=== PATIENT | male | born 1945 | race Caucasian/White ===

== ENCOUNTER 2019-03-19 16:35 | Emergency (ER) | payer MEDICARE ==
[~2019-03-19] VITALS: Ht 175.3 cm; Wt 97.5 kg
[~2019-03-19 16:35] MED LIST: CEPH-264 PO; HTN MED PO
--- NOTE | 2019-03-19 16:42 | PHYS DOC ---
Past History Past Medical History: Asthma, High Cholesterol, Hypertension, Other Past Surgical History: Other Smoking: Non-smoker Alcohol Use: Occasionally Drug Use: None Adult General Chief Complaint Chief Complaint: KNEE INJURY HPI HPI Patient is a 74-year-old male presents complaining of right knee pain. Patient slipped going down a curb shortly prior to arrival. Landed directly on his knee. Increased pain with movement. Pain is moderate to severe. No previous history of right knee injury. He was brought in by EMS. No numbness or tingling. No hip pain.[] Review of Systems Review of Systems Constitutional: Denies fever or chills [] Eyes: Denies change in visual acuity, redness, or eye pain [] HENT: Denies nasal congestion or sore throat [] Respiratory: Denies cough or shortness of breath [] Cardiovascular: No chest pain or palpitations[] GI: Denies abdominal pain, nausea, vomiting, bloody stools or diarrhea [] : Denies dysuria or hematuria [] Musculoskeletal: Denies back pain, see history of present illness[] Integument: Denies rash or skin lesions [] Neurologic: Denies headache, focal weakness or sensory changes [] Endocrine: Denies polyuria or polydipsia [] All other systems were reviewed and found to be within normal limits, except as documented in this note. Allergies Allergies Allergies Coded Allergies Type Severity Reaction Last Updated Verified Penicillins Allergy Unknown 01/29/15 No Physical Exam Physical Exam Constitutional: Well developed, well nourished, mild to moderate discomfort, non-toxic appearance. [] HENT: Normocephalic, atraumatic, bilateral external ears normal, oropharynx moist, no oral exudates, nose normal. [] Eyes: PERRLA, EOMI, conjunctiva normal, no discharge. [] Neck: Normal range of motion, no tenderness, supple, no stridor. [] Cardiovascular:Heart rate regular rhythm, no murmur [] Lungs & Thorax: Bilateral breath sounds clear to auscultation [] Abdomen: Bowel sounds normal, soft, no tenderness, no masses, no pulsatile masses. Pelvis is stable in 3 planes[] Skin: Warm, dry, no erythema, no rash. [] Back: No tenderness, no CVA tenderness. [] Extremities: Right knee has diffuse tenderness to palpation. No bruising. Abrasion over the patella. Decreased active range of motion secondary to pain. Varus and valgus laxity was not grossly assessed due to significant pain on performing these motions, likewise with Daniel and drawer testing. A joint a edwin and a joined below were evaluated and were normal. The other 3 extremities show: No tenderness, no cyanosis, no clubbing, ROM intact, no edema. [] Neurologic: Alert and oriented X 3, normal motor function, normal sensory function, no focal deficits noted. [] Psychologic: Affect normal, judgement normal, mood normal. [] EKG EKG [] Radiology/Procedures Radiology/Procedures Right knee x-ray series shows a distal femur fracture.[] Course & Med Decision Making Course & Med Decision Making Pertinent Labs and Imaging studies reviewed. (See chart for details) ED course: Patient arrived, was placed in bed, and tolerated exam well. After the initial radiograph of the knee was obtained that showed an obvious fracture, IV access was established, pain medicine was given and then the additional images were obtained. Consultation was made with orthopedic surgery at , Dr Puga, who agrees that the patient needs surgery. Consultation was made with the hospitalist service, Dr. Zamarripa graciously accepted at [facility]. Findings were discussed with patient and family who voiced understanding. Patient was transferred in improved condition with all questions answered. Medical decision making: Patient with a distal femur fracture. We do not have orthopedic surgery available at [facility], so transfer arrangements are being made. There is no evidence of an open fracture. There is no evidence of neurologic or vascular compromise.[] Dragon Disclaimer Dragon Disclaimer This electronic medical record was generated, in whole or in part, using a voice recognition dictation system. Departure Departure: Impression: Primary Impression: Closed right femoral fracture Disposition: 05 TRANSFER OTHER Condition: STABLE Referrals: NIELS ARRIAGA MD (PCP) Problem Qualifiers Primary Impression: Closed right femoral fracture Encounter type: initial encounter Femur location: distal, unspecified portion Fracture morphology: unspecified fracture morphology Qualified Codes: S72.401A - Unspecified fracture of lower end of right femur, initial encounter for closed fracture ADRIANNACHANDRAJASS COX Mar 19, 2019 16:42
[2019-03-19] MEDS ORDERED: MORPHINE SULFATE 4 MG/ML DISP.SYRIN. ONE (17:13)
[2019-03-19] MEDS ORDERED: HYDROcodone/APAP 5/325MG 1 TAB TABLET PO ONE (17:15)
[2019-03-19] MEDS ORDERED: MORPHINE SULFATE 4 MG/ML DISP.SYRIN. IV ONE ×2 (17:30→19:30)
[2019-03-19 17:37] LABS: BASO # 0.1 x10^3/uL (0.0-0.2); BASO % 1 % (0-3); EOS # 0.3 x10^3/uL (0.0-0.7); EOS % 4 % (0-3); HEMATOCRIT 46.9 % (39.0-53.0); HEMOGLOBIN 15.5 g/dL (13.0-17.5); LYMPH # 2.2 x10^3/uL (1.0-4.8); LYMPH % 31 % (24-48); MEAN CORPUSCULAR HEMOGLOBIN 30 pg (25-35); MEAN CORPUSCULAR HGB CONC 33 g/dL (31-37); MEAN CORPUSCULAR VOLUME 92 fL (79-100); MONO # 0.7 x10^3/uL (0.0-1.1); MONO % 10 % (0-9); NEUT # 3.8 x10^3uL (1.8-7.7); NEUT % 55 % (31-73); PLATELET COUNT 220 x10^3/uL (140-400); RED BLOOD COUNT 5.11 x10^6/uL (4.30-5.70); RED CELL DISTRIBUTION WIDTH 13.2 % (11.5-14.5)
--- NOTE | 2019-03-19 17:50 | RAD ---
Study: KNEE RIGHT 3V Indication: Pain status post fall. Comparison: 10/08/2015 Findings: Comminuted, displaced fracture of the distal femur extending from the distal diaphysis through the intercondylar notch. Mild ventral apex angulation at the level of the distal diaphysis. On the AP view, cortical irregularity at the medial tibial plateau which is not well seen on the additional views. Additionally, small ossific focus at the fibular styloid. Lipohemarthrosis noted. Background relatively mild tricompartmental degenerative changes. Atherosclerotic calcifications. Impression: 1. Comminuted and displaced fracture involving the distal femoral diaphysis and extending through the intercondylar notch, as above. Associated lipohemarthrosis. 2. Potential tiny fracture fragment at the medial tibial plateau as well as potential avulsion injury at the fibular styloid, however the acuity of these findings are uncertain. Electronically signed by: TRIINDAD PEREZ MD (03/19/2019 5:47 PM) [id number]
[2019-03-19 17:54] LABS: ALBUMIN 4.1 g/dL (3.4-5.0); ALBUMIN/GLOBULIN RATIO 1.2 (1.0-1.7); CALCIUM 9.2 mg/dL (8.5-10.1); CREATININE 0.7 mg/dL (0.7-1.3); GFR 110.5; POTASSIUM 3.7 mmol/L (3.5-5.1); TOTAL BILIRUBIN 0.4 mg/dL (0.2-1.0); TOTAL PROTEIN 7.4 g/dL (6.4-8.2)
--- NOTE | 2019-03-19 17:57 | EKG ---
[address] [address] Test Date: 2019-03-19 Test Time: 17:54:51 Pat Name: AUGUST DAVIS Department: Room: Gender: M Barn Hand: : 1945 Requested By: JASS BANKS Order Number: [id number] Reading MD: Measurements Intervals Severance Rate: 82 P: 28 IL: 158 QRS: -8 QRSD: 88 T: -6 QT: 378 QTc: 445 Interpretive Statements SINUS RHYTHM LEFTWARD AXIS QRS(T) CONTOUR ABNORMALITY CONSIDER ANTEROLATERAL MYOCARDIAL DAMAGE POSSIBLY ABNORMAL ECG RI6.01 No previous ECG available for comparison
[2019-03-19 18:35] VITALS: BP 152/83
--- NOTE | 2019-03-19 19:26 | RAD ---
RIGHT FEMUR XRAY, PORTABLE CHEST 1V Clinical History: Technique: AP view of the chest was obtained at 03/19/2019 5:10 PM. Comparison: None. Findings: The cardiomediastinal silhouette is normal. The pulmonary vasculature is normal. The lungs and pleural margins are clear. Impression: No evidence of an acute cardiopulmonary process. End impression Two-view right femur: AP and crosstable lateral views right femur obtained There is a comminuted mildly displaced fracture of the distal femur. There are fracture lines which enter the joint space. IMPRESSION: Acute traumatic comminuted fracture of the distal right femur. Electronically signed by: Gurdeep Acuna III, MD (03/19/2019 7:23 PM) [id number]
== END 2019-03-19 20:40 | disposition short-term general hospital (02) ==
LOC: ER 16:35
DX: S72.401A Unspecified fracture of lower end of right femur, initial encounter for closed fracture (principal); J45.909 Unspecified asthma, uncomplicated; E78.00 Pure hypercholesterolemia, unspecified; I10 Essential (primary) hypertension; Z88.0 Allergy status to penicillin; W01.0XXA Fall on same level from slipping, tripping and stumbling without subsequent striking against object, initial encounter; Y93.89 Activity, other specified; Y92.89 Other specified places as the place of occurrence of the external cause; Y99.8 Other external cause status
CPT/HCPCS: 29505; 36415; 71045; 73552; 73562; 80053; 85025; 85610; 85730; 93005; 96374; 96376; 99285; J2270

== ENCOUNTER → 2020-04-11 | Outpatient (CLI) | payer MEDICARE ==
--- NOTE | 2020-04-11 16:29 | RAD ---
Three-view right foot study Clinical indications: Right foot pain. FINDINGS: No acute fracture or dislocation or lytic process is seen. 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 Moderate size plantar spur of the calcaneus is seen. IMPRESSION: No acute fracture. Electronically signed by: Pritesh Madera MD (04/11/2020 4:26 PM) [id number]
== END ==
LOC: RAD 15:09
PROVIDERS: ATTEND Specialist
DX: M19.071 Primary osteoarthritis, right ankle and foot (principal); M77.31 Calcaneal spur, right foot
CPT/HCPCS: 73630

== ENCOUNTER → 2021-04-17 | Outpatient (CLI) | payer MEDICARE ==
--- NOTE | 2021-04-17 14:15 | RAD ---
EXAM: Chest, 2 views. HISTORY: Arthroplasty. COMPARISON: None. FINDINGS: 2 views of the chest are obtained. There is no infiltrate, pleural effusion or pneumothorax . The heart is normal in size. IMPRESSION: No acute pulmonary finding. Electronically signed by: Beena Bosch MD (04/17/2021 2:13 PM) [id number]
== END ==
LOC: RAD 13:28
PROVIDERS: ATTEND Orthopaedic Surgery Sports Medicine
DX: Z01.818 Encounter for other preprocedural examination (principal); M79.89 Other specified soft tissue disorders; M25.569 Pain in unspecified knee
CPT/HCPCS: 71046; 93005

== ENCOUNTER → 2021-11-02 | Outpatient (CLI) | payer MEDICARE ==
--- NOTE | 2021-11-02 13:30 | RAD ---
EXAMINATION: CT RIGHT KNEE WITHOUT IV CONTRAST CLINICAL HISTORY: Right knee pain. TECHNIQUE: Noncontrast serial axial images obtained through the right knee with sagittal and coronal reconstructions. CT Dose Reduction Employed: One or more of the following individualized dose reduction techniques wer e utilized for this examination: 1. Automated exposure control 2. Adjustment of the mA and/or kV ac cording to patient size 3. Use of iterative reconstruction technique. COMPARISON: CT right femur 03/20/2019 FINDINGS: Lateral plate and screw fixation hardware along the distal femur with prominent associated streak art ifact. Hardware appears grossly intact with no evidence of complication on limited evaluation. Remote fracture deformities along the anterior, lateral, and posterior supracondylar femur as well as in the lateral femoral condyle. Heterogeneous lucencies along the distal aspect of the dominant sagi ttally oriented fracture plane with residual cortical defect along the anterior fracture margin resul ting in up to 4 mm articular surface depression in the lateral trochlea. Small residual cortical defe cts also noted along the lateral and posterior supracondylar femur. No evidence of acute fracture. Mi ld lateralization of the patella in the trochlear groove. Joint alignment otherwise maintained. Partial fatty replacement in the visualized peroneus longus muscle. Muscles otherwise unremarkable on limited evaluation. Minimal fluid in the semimembranosus-gastrocnemius bursa. Vascular calcification s. IMPRESSION: ORIF right distal femur with no evidence of hardware complication on limited evaluation. Remote fracture deformities in the distal femur as described with residual cortical defect resulting in 4 mm articular surface depression in the lateral trochlea. Heterogeneous mineralization along the distal aspect of the dominant fracture plane, but no evidence of fracture nonunion. Electronically signed by: Donis Bates DO (11/02/2021 1:27 PM) [facility]
== END ==
LOC: CT 09:27
PROVIDERS: ATTEND Orthopaedic Surgery Sports Medicine
DX: S72.401A Unspecified fracture of lower end of right femur, initial encounter for closed fracture (principal); X58.XXXA Exposure to other specified factors, initial encounter; Y93.89 Activity, other specified; Y92.89 Other specified places as the place of occurrence of the external cause; Y99.8 Other external cause status
CPT/HCPCS: 73700